=== PATIENT | female | born 1930 | race Caucasian/White ===

== ENCOUNTER 2016-10-06 14:04 | Emergency (ER) | payer OTHER ==
[~2016-10-06] VITALS: Ht 160 cm; Wt 63.5 kg
[~2016-10-06 14:04] MED LIST: ALIS300T PO; ATOR20TA PO; BENA40TA7 PO; CLON0.2T PO; OMEP20TA44 PO; PREMARIN PO
[2016-10-06 16:41] LABS: Basophils # (auto) 0 uL; Basophils % (auto) 0.3 % (0.0-2.0); Eosinophils # (auto) 0 uL; Eosinophils % (auto) 0.2 % (0.0-7.0); Hematocrit 48.1 % (36.0-46.0); Hemoglobin 16.5 g/dL (12.2-16.2); Lymphocytes # (auto) 1.1 uL; Lymphocytes % (auto) 15.1 % (10.0-50.0); Mean Corpuscular Hemoglobin 33.9 pg (28.0-32.0); Mean Corpuscular Hgb Conc. 34.3 g/dL (32.0-36.0); Mean Corpuscular Volume 98.8 fL (80.0-100.0); Mean Platelet Volume 9.3 fL (7.4-10.4); Monocytes # (auto) 0.6 uL; Monocytes % (auto) 7.8 % (0.0-12.0); Neutrophils # (auto) 5.6 uL; Neutrophils % (auto) 76.6 % (37.0-80.0); Platelet Count (auto) 296 10^3/uL (140-450); Red Cell Distribution Width 12.9 % (11.6-16.0); White Blood Cell 7.4 10^3/uL (4.4-10.8)
[2016-10-06 17:13] LABS: Urine Bilirubin Negative (Negative); Urine Blood Negative /uL (Negative); Urine Color Yellow (Yellow); Urine Glucose Normal (Normal); Urine Ketone Negative (Negative); Urine Nitrite Negative (Negative); Urine RBC <1 /hpf (0 - 4); Urine Squamous Epithelial Cell FEW /hpf (<5); Urine Urobilinogen Normal (Negative)
[2016-10-06 18:55] LABS: INR 0.97 (0.9-1.15); Partial Thromboplastin Time 25.3 sec (22.64-33.71); Prothrombin Time 10.6 sec (9.37-12.3)
[2016-10-06 19:13] LABS: Albumin 4.3 g/dL (3.4-5.0); BUN/Creatinine Ratio 18.2; Bilirubin, Total 0.7 mg/dL (0.2-1.0); Calcium 9.7 mg/dL (8.5-10.1); Potassium 5.1 mmol/L (3.5-5.1); Total Protein 7.9 g/dL (6.4-8.2)
[2016-10-06 19:33] LABS: B-Type Natriuretic Peptide 98.31 pg/mL (0-100)
[2016-10-06 19:40] LABS: Temperature: 23.1 C (20.0-25.0)
[2016-10-06 22:50] VITALS: BP 167/90
== END 2016-10-06 23:09 | disposition home or self-care (01) ==
LOC: ER 14:04
DX: R60.0 Localized edema (principal); R00.2 Palpitations; E11.9 Type 2 diabetes mellitus without complications; I10 Essential (primary) hypertension; K21.9 Gastro-esophageal reflux disease without esophagitis; Z88.1 Allergy status to other antibiotic agents; Z88.8 Allergy status to other drugs, medicaments and biological substances; E78.5 Hyperlipidemia, unspecified; Z95.0 Presence of cardiac pacemaker; R07.9 Chest pain, unspecified
CPT/HCPCS: 36415; 71020; 80053; 81001; 82962; 83880; 84484; 85025; 85610; 85730; 93005

== ENCOUNTER 2016-11-22 14:22 | Inpatient (IN) | payer OTHER ==
[~2016-11-22] VITALS: Ht 160 cm; Wt 65.8 kg
[2016-11-22 15:49] LABS: Urine Bilirubin Negative (Negative); Urine Blood Negative /uL (Negative); Urine Color Yellow (Yellow); Urine Glucose Normal (Normal); Urine Nitrite Negative (Negative); Urine RBC <1 /hpf (0 - 4); Urine Squamous Epithelial Cell FEW /hpf (<5); Urine Urobilinogen Normal (Negative)
[2016-11-22 15:55] LABS: Urine Ketone 2+ (Negative)
[2016-11-22 15:57] LABS: Basophils # (auto) 0 uL; CONDITION Y; Eosinophils # (auto) 0 uL; Eosinophils % (auto) 0.2 % (0.0-7.0); Hemoglobin 15.1 g/dL (12.2-16.2); Lymphocytes # (auto) 0.8 uL; Lymphocytes % (auto) 11.8 % (10.0-50.0); Mean Corpuscular Hemoglobin 34.1 pg (28.0-32.0); Mean Corpuscular Hgb Conc. 35.1 g/dL (32.0-36.0); Mean Corpuscular Volume 97.2 fL (80.0-100.0); Mean Platelet Volume 9.5 fL (7.4-10.4); Monocytes # (auto) 0.3 uL; Monocytes % (auto) 4.7 % (0.0-12.0); Neutrophils # (auto) 5.5 uL; Neutrophils % (auto) 83.3 % (37.0-80.0); Platelet Count (auto) 242 10^3/uL (140-450); Red Cell Distribution Width 12.7 % (11.6-16.0); White Blood Cell 6.6 10^3/uL (4.4-10.8)
[2016-11-22 16:13] LABS: BUN/Creatinine Ratio 12.2; Calcium 8.5 mg/dL (8.5-10.1); Magnesium 2.3 mg/dL (1.6-2.6); Potassium 4.1 mmol/L (3.5-5.1)
[2016-11-22 16:14] LABS: INR 0.98 (0.9-1.15); Partial Thromboplastin Time 25.4 sec (22.64-33.71); Prothrombin Time 10.7 sec (9.37-12.3)
[2016-11-22 16:15] LABS: Bilirubin, Total 1.1 mg/dL (0.2-1.0); Total Protein 7.5 g/dL (6.4-8.2)
[2016-11-22] MEDS ORDERED: ONDANSETRON HCL 4 MG/2 ML VIAL IV ONE (20:15)
[2016-11-22] MEDS ORDERED: LEVEMIR SC (21:21)
[2016-11-22] MEDS ORDERED: ATEN-60 PO (21:21)
[2016-11-22] MEDS ORDERED: FURO20TA3 PO (21:23)
[2016-11-22] MEDS ORDERED: POTA10TA51 PO (21:23)
[2016-11-22] MEDS ORDERED: REPA2TAB8 PO (21:26)
[2016-11-22] MEDS ORDERED: DOCUSATE SOD 100 MG CAP PO PRN (21:45)
[2016-11-22] MEDS ORDERED: DEXTROSE (50%) 50ML SYRG IV PRN (21:45)
[2016-11-22] MEDS ORDERED: TEMAZEPAM 15 MG CAP PO PRN (21:45)
[2016-11-22] MEDS ORDERED: ONDANSETRON HCL 4 MG/2 ML VIAL IV PRN (21:45)
[2016-11-22] MEDS ORDERED: HYDROcodone-ACET 5/325MG TAB PO PRN (21:45)
[2016-11-22] MEDS ORDERED: ACETAMINOPHEN 325 MG TAB PO PRN (21:45)
[2016-11-22] MEDS ORDERED: ATORVASTATIN 20 MG TAB PO SCH (22:00)
[2016-11-22] MEDS: FAMOTIDINE 20 MG TAB PO SCH (22:12)
[2016-11-22] MEDS: NITROFURANTOIN (MONO) 100 mg CAP PO SCH (22:12)
[2016-11-22 22:20] VITALS: BP 172/86
[2016-11-22] MEDS: SODIUM CHLORIDE 0.9% 1,000 ML IV SCH (23:32)
[2016-11-22] MEDS: cloNIDine HCL 0.1 MG TAB PO SCH (23:41)
[2016-11-22 23:47] VITALS: BP 172/86
[2016-11-22] MEDS: InsuLIN REG 1unit/0.01ml Soln (100units/ml) SC SCH (23:48)
[2016-11-23] MEDS: ACCU-CHEK COMFORT CURVE STRIP VI SCH ×3 (01:29→11:22)
[2016-11-23] MEDS ORDERED: LOSA100T26 PO (03:46)
[2016-11-23] MEDS ORDERED: NITR-52 PO (03:46)
[2016-11-23 05:34] VITALS: BP 117/66
[2016-11-23] MEDS: InsuLIN REG 1unit/0.01ml Soln (100units/ml) SC SCH ×2 (06:36→11:40)
[2016-11-23 06:37] LABS: Basophils # (auto) 0 uL; Basophils % (auto) 0.4 % (0.0-2.0); CONDITION Y; Eosinophils # (auto) 0 uL; Eosinophils % (auto) 0.6 % (0.0-7.0); Hematocrit 36.2 % (36.0-46.0); Hemoglobin 12.9 g/dL (12.2-16.2); Lymphocytes # (auto) 0.9 uL; Lymphocytes % (auto) 23.8 % (10.0-50.0); Mean Corpuscular Hemoglobin 34.3 pg (28.0-32.0); Mean Corpuscular Hgb Conc. 35.6 g/dL (32.0-36.0); Mean Corpuscular Volume 96.4 fL (80.0-100.0); Mean Platelet Volume 9.5 fL (7.4-10.4); Monocytes # (auto) 0.5 uL; Neutrophils # (auto) 2.4 uL; Neutrophils % (auto) 62.2 % (37.0-80.0); Platelet Count (auto) 230 10^3/uL (140-450); Red Cell Distribution Width 13.1 % (11.6-16.0); White Blood Cell 3.9 10^3/uL (4.4-10.8)
[2016-11-23 06:58] LABS: Albumin 3.2 g/dL (3.4-5.0); BUN/Creatinine Ratio 12.3; Bilirubin, Total 0.7 mg/dL (0.2-1.0); Calcium 8.1 mg/dL (8.5-10.1); Potassium 3.2 mmol/L (3.5-5.1); Total Protein 5.9 g/dL (6.4-8.2)
[2016-11-23] MEDS: NITROFURANTOIN (MONO) 100 mg CAP PO SCH (08:29)
[2016-11-23] MEDS: FAMOTIDINE 20 MG TAB PO SCH (08:30)
[2016-11-23] MEDS: cloNIDine HCL 0.1 MG TAB PO SCH (08:31)
[2016-11-23 08:46] VITALS: BP 132/66
[2016-11-23] MEDS ORDERED: BENAZEPRIL HCL 10 MG TAB PO SCH (10:00)
[2016-11-23] MEDS ORDERED: MONTELUKAST SODIUM 10 MG TAB PO SCH (10:00)
[2016-11-23] MEDS ORDERED: ENOXAPARIN SOD 40 MG/0.4 ML SYRINGE SC SCH (10:00)
[2016-11-23] MEDS: SODIUM CHLORIDE 0.9% 1,000 ML IV SCH (10:41)
[2016-11-23] MEDS ORDERED: POTASSIUM CHL 20 Meq TABLET PO ONE (12:45)
[2016-11-23 13:00] VITALS: BP 108/69
[2016-11-23 16:53] VITALS: BP 151/65
== END 2016-11-23 17:15 | disposition home health service (06) | DRG 696 ==
LOC: EDBD 14:22 → ER 14:25 → OVERFLOW 14:26 → WEST WING 22:20
PROVIDERS: ADMIT Internal Medicine; ATTEND Internal Medicine
DX: R33.9 Retention of urine, unspecified (principal); E87.1 Hypo-osmolality and hyponatremia; E11.9 Type 2 diabetes mellitus without complications; I10 Essential (primary) hypertension; E78.5 Hyperlipidemia, unspecified; I25.10 Atherosclerotic heart disease of native coronary artery without angina pectoris; I70.0 Atherosclerosis of aorta; K21.9 Gastro-esophageal reflux disease without esophagitis; K44.9 Diaphragmatic hernia without obstruction or gangrene; K57.90 Diverticulosis of intestine, part unspecified, without perforation or abscess without bleeding; N13.9 Obstructive and reflux uropathy, unspecified; Z80.0 Family history of malignant neoplasm of digestive organs; Z82.0 Family history of epilepsy and other diseases of the nervous system; Z82.49 Family history of ischemic heart disease and other diseases of the circulatory system; Z95.0 Presence of cardiac pacemaker; Z90.710 Acquired absence of both cervix and uterus; Z88.1 Allergy status to other antibiotic agents; Z88.2 Allergy status to sulfonamides
CPT/HCPCS: 36415; 71010; 74176; 80053; 81001; 82962; 83735; 85025; 85610; 85730; 87086; 93005; 94761; 96374; J1815; J2405

== ENCOUNTER 2016-11-25 14:42 | Emergency (ER) | payer OTHER ==
[~2016-11-25] VITALS: Ht 167.6 cm; Wt 63.5 kg
[~2016-11-25 14:42] MED LIST changes: -ALIS300T PO; +ATEN-60 PO; -BENA40TA7 PO; -CLON0.2T PO; +FURO20TA3 PO; +LEVEMIR SC; +LOSA100T26 PO; +POTA10TA51 PO; -PREMARIN PO; +REPA2TAB8 PO
[2016-11-25 16:44] VITALS: BP 167/82
[2016-11-25 17:44] LABS: Basophils # (auto) 0 uL; Basophils % (auto) 0.3 % (0.0-2.0); CONDITION Y; Eosinophils # (auto) 0 uL; Eosinophils % (auto) 0.4 % (0.0-7.0); Hematocrit 43.6 % (36.0-46.0); Hemoglobin 15.4 g/dL (12.2-16.2); Lymphocytes # (auto) 1.3 uL; Lymphocytes % (auto) 19.6 % (10.0-50.0); Mean Corpuscular Hemoglobin 34.5 pg (28.0-32.0); Mean Corpuscular Hgb Conc. 35.3 g/dL (32.0-36.0); Mean Corpuscular Volume 97.8 fL (80.0-100.0); Mean Platelet Volume 9.6 fL (7.4-10.4); Monocytes # (auto) 0.7 uL; Monocytes % (auto) 10.1 % (0.0-12.0); Neutrophils # (auto) 4.6 uL; Neutrophils % (auto) 69.6 % (37.0-80.0); Platelet Count (auto) 261 10^3/uL (140-450); Red Cell Distribution Width 13.3 % (11.6-16.0); SUSPECT SEE PRINTOUT; White Blood Cell 6.6 10^3/uL (4.4-10.8)
[2016-11-25 17:53] LABS: Albumin 4.4 g/dL (3.4-5.0); Alkaline Phosphatase 90 U/L (45-117); Anion Gap 9 (5-15); Aspartate Aminotransferase 22 U/L (15-37); BUN/Creatinine Ratio 17.1; Bilirubin, Total 0.8 mg/dL (0.2-1.0); Blood Urea Nitrogen 12 mg/dL (7-18); Calcium 9.5 mg/dL (8.5-10.1); Carbon Dioxide 28 mmol/L (21-32); Chloride 92 mmol/L (98-107); GFR African American 103 mL/min; GFR Non-African American 85 mL/min; Glucose 91 mg/dL (74-106); Magnesium 2.6 mg/dL (1.6-2.6); Potassium 4.2 mmol/L (3.5-5.1); Sodium 129 mmol/L (136-145); Total Protein 8.1 g/dL (6.4-8.2)
[2016-11-25 18:10] LABS: Platelet Estimate Adequate
[2016-11-25 18:11] LABS: Giant Platelets Few
== END 2016-11-25 19:48 | disposition left against medical advice (07) ==
LOC: EDUNIT# 14:42 → ER 14:42
DX: I10 Essential (primary) hypertension (principal); G47.00 Insomnia, unspecified; Z53.21 Procedure and treatment not carried out due to patient leaving prior to being seen by health care provider
CPT/HCPCS: 36415; 71020; 80053; 83735; 84484; 85025; 93005

== ENCOUNTER 2017-12-24 16:19 | Inpatient (IN) | payer OTHER ==
[~2017-12-24] VITALS: Ht 160 cm; Wt 64.5 kg
[~2017-12-24 16:19] MED LIST changes: +ASPI81CH43 PO; +CLON0.1T14 PO; +ENAL2.5T PO; -FURO20TA3 PO; -LOSA100T26 PO; -POTA10TA51 PO
[2017-12-24] MEDS ORDERED: SODIUM CHLORIDE 0.9% 1,000 ML IV ONE (16:34)
[2017-12-24 17:41] LABS: Basophils # (auto) 0 uL; Basophils % (auto) 0.3 % (0.0-2.0); Eosinophils # (auto) 0.1 uL; Lymphocytes # (auto) 0.9 uL; Mean Corpuscular Hgb Conc. 35.1 g/dL (32.0-36.0); Monocytes # (auto) 1.1 uL; Nucleated Red Blood Cells % 0.1 %
[2017-12-24 17:43] LABS: Eosinophils % (auto) 0.6 % (0.0-7.0); Hematocrit 33.9 % (36.0-46.0); Hemoglobin 11.9 g/dL (12.2-16.2); Lymphocytes % (auto) 10.3 % (10.0-50.0); Mean Corpuscular Hemoglobin 34.7 pg (28.0-32.0); Mean Corpuscular Volume 98.8 fL (80.0-100.0); Monocytes % (auto) 12.3 % (0.0-12.0); Neutrophils # (auto) 6.9 uL; Neutrophils % (auto) 76.5 % (37.0-80.0); Platelet Count (auto) 207 10^3/uL (140-450); Red Blood Cells 3.44 10^6/uL (4.0-5.20); Red Cell Distribution Width 13.4 % (11.8-14.3)
[2017-12-24] MEDS: SODIUM CHLORIDE 0.9% 1,000 ML IV SCH (17:56)
[2017-12-24] MEDS ORDERED: DEXTROSE (50%) 50ML SYRG IV PRN (18:00)
[2017-12-24] MEDS ORDERED: ACETAMINOPHEN 500 MG TAB PO PRN (18:00)
[2017-12-24] MEDS ORDERED: LORazepam 0.5 MG TAB PO PRN (18:00)
[2017-12-24] MEDS ORDERED: ACETAMINOPHEN 500 MG TAB PO ONE (18:00)
[2017-12-24] MEDS ORDERED: PROMETHAZINE HCL 25 MG/ML 1ML IV PRN (18:00)
[2017-12-24] MEDS ORDERED: LACTULOSE 20Gm/30ML SOLN PO PRN (18:00)
[2017-12-24] MEDS ORDERED: LABETALOL HCL 5 MG/ML ML 20ML VIAL IV PRN (18:00)
[2017-12-24] MEDS ORDERED: NITROGLYCERIN 0.4 MG SL TAB SL PRN (18:00)
[2017-12-24] MEDS ORDERED: MORPHINE SULF INJ 2 MG/ML SYRINGE 1ML IV PRN (18:00)
[2017-12-24 18:05] LABS: Albumin 3.4 g/dL (3.4-5.0); BUN/Creatinine Ratio 18.8; Bilirubin, Total 0.6 mg/dL (0.2-1.0); Potassium 3.8 mmol/L (3.5-5.1); Total Protein 6.4 g/dL (6.4-8.2)
[2017-12-24] MEDS ORDERED: PANTOPRAZOLE 40 MG TAB PO SCH (18:19)
[2017-12-24] MEDS ORDERED: ENALAPRIL MALEATE 2.5 MG TAB PO ONE (18:30)
[2017-12-24] MEDS ORDERED: OMEPRAZOLE PO SCH (19:18)
[2017-12-24 19:23] LABS: Folate (Folic Acid) 17.52 ng/mL (5.38-24)
[2017-12-24 19:45] VITALS: BP 158/67
[2017-12-24 22:00] VITALS: BP 158/67
[2017-12-24] MEDS ORDERED: ATORVASTATIN 20 MG TAB PO SCH (22:00)
[2017-12-24] MEDS: ACCU-CHEK COMFORT CURVE STRIP VI SCH (22:08)
[2017-12-24] MEDS: TEMAZEPAM 15 MG CAP PO PRN (22:18)
[2017-12-24] MEDS: ATORVASTATIN 20 MG TAB PO SCH (22:18)
[2017-12-24] MEDS: InsuLIN REG 1unit/0.01ml Soln (100units/ml) SC SCH (22:18)
[2017-12-24] MEDS: ATENOLOL 25 MG TAB PO SCH (22:18)
[2017-12-24] MEDS: HYDROcodone-ACET 5/325MG TAB PO PRN (22:20)
[2017-12-24] MEDS ORDERED: CRAN600T PO (23:52)
[2017-12-25] MEDS: SODIUM CHLORIDE 0.9% 1,000 ML IV SCH ×2 (03:53→18:56)
[2017-12-25 05:00] VITALS: BP 135/60
[2017-12-25] MEDS ORDERED: PNEUMOCOCCAL VACC POLYS 25 MCG/0.5 ML VIAL IM ONE (05:45)
[2017-12-25] MEDS: HYDROcodone-ACET 5/325MG TAB PO PRN ×3 (05:51→20:38)
[2017-12-25] MEDS: ACCU-CHEK COMFORT CURVE STRIP VI SCH ×4 (07:26→22:00)
[2017-12-25] MEDS: REPAGLINIDE 0.5 MG TAB PO SCH ×3 (07:31→18:10)
[2017-12-25] MEDS: InsuLIN REG 1unit/0.01ml Soln (100units/ml) SC SCH ×5 (07:31→23:15)
[2017-12-25 07:49] VITALS: BP 156/70
[2017-12-25] MEDS: ASPirin 81 mg TAB PO SCH (09:30)
[2017-12-25] MEDS: ATENOLOL 25 MG TAB PO SCH (09:31)
[2017-12-25] MEDS: ENALAPRIL MALEATE 2.5 MG TAB PO SCH (09:31)
[2017-12-25] MEDS: ENOXAPARIN SOD 40 MG/0.4 ML SYRINGE SC SCH (09:32)
[2017-12-25] MEDS ORDERED: ASPirin 81 mg TAB PO ONE (10:00)
[2017-12-25] MEDS ORDERED: IOHEXOL 350 MG/ML 100ML IJ ONE (12:44)
[2017-12-25 13:01] VITALS: BP 165/70
[2017-12-25 16:28] VITALS: BP 163/79
[2017-12-25] MEDS: MORPHINE SULF INJ 2 MG/ML SYRINGE 1ML IV PRN (16:38)
[2017-12-25] MEDS ORDERED: SODIUM CHLORIDE 0.9% 1,000 ML IV ONE ×2 (18:45→22:45)
[2017-12-25 20:12] VITALS: BP 140/73
[2017-12-25 22:00] VITALS: BP 175/74
[2017-12-25] MEDS ORDERED: ENALAPRILAT 1.25 MG/ML-1ML VIAL IV PRN (22:45)
[2017-12-25] MEDS: ATORVASTATIN 20 MG TAB PO SCH (23:14)
[2017-12-26] MEDS: TEMAZEPAM 15 MG CAP PO PRN (00:37)
[2017-12-26] MEDS: HYDROcodone-ACET 5/325MG TAB PO PRN ×2 (03:10→05:13)
[2017-12-26 05:00] VITALS: BP 140/68
[2017-12-26] MEDS: ACCU-CHEK COMFORT CURVE STRIP VI SCH ×2 (06:29→12:20)
[2017-12-26] MEDS: REPAGLINIDE 0.5 MG TAB PO SCH (06:31)
[2017-12-26] MEDS: InsuLIN REG 1unit/0.01ml Soln (100units/ml) SC SCH ×2 (06:40→12:20)
[2017-12-26] MEDS: SODIUM CHLORIDE 0.9% 1,000 ML IV SCH (06:42)
[2017-12-26] MEDS: MORPHINE SULF INJ 2 MG/ML SYRINGE 1ML IV PRN (08:33)
[2017-12-26 09:00] VITALS: BP 158/83
[2017-12-26] MEDS: ENALAPRIL MALEATE 2.5 MG TAB PO SCH (09:38)
[2017-12-26] MEDS: ASPirin 81 mg TAB PO SCH (09:38)
[2017-12-26 09:46] VITALS: BP 127/73
[2017-12-26] MEDS: ENOXAPARIN SOD 40 MG/0.4 ML SYRINGE SC SCH (10:00)
[2017-12-26 12:00] VITALS: BP 157/79
[2017-12-26 12:38] VITALS: BP 157/79
[2017-12-26] MEDS ORDERED: HYDR-4683 PO (13:23)
== END 2017-12-26 15:50 | disposition left against medical advice (07) | DRG 281 ==
LOC: EDBD 16:19 → ER 16:26 → TELE 16:27 → TELE-WESTW 19:38
PROVIDERS: ADMIT Internal Medicine; ATTEND Internal Medicine
DX: I95.1 Orthostatic hypotension (principal); I21.4 Non-ST elevation (NSTEMI) myocardial infarction; E87.1 Hypo-osmolality and hyponatremia; E11.9 Type 2 diabetes mellitus without complications; E78.5 Hyperlipidemia, unspecified; G20 Parkinson's disease; I10 Essential (primary) hypertension; I67.2 Cerebral atherosclerosis; Z66 Do not resuscitate; Z53.21 Procedure and treatment not carried out due to patient leaving prior to being seen by health care provider; W18.39XA Other fall on same level, initial encounter; K21.9 Gastro-esophageal reflux disease without esophagitis; I25.2 Old myocardial infarction; Z80.0 Family history of malignant neoplasm of digestive organs; Z82.0 Family history of epilepsy and other diseases of the nervous system; Z82.49 Family history of ischemic heart disease and other diseases of the circulatory system; Z90.710 Acquired absence of both cervix and uterus; Z88.6 Allergy status to analgesic agent; Z88.1 Allergy status to other antibiotic agents; Z88.2 Allergy status to sulfonamides; Z88.8 Allergy status to other drugs, medicaments and biological substances; Z79.4 Long term (current) use of insulin; Z79.899 Other long term (current) drug therapy; Z91.040 Latex allergy status; Y93.89 Activity, other specified; Y92.098 Other place in other non-institutional residence as the place of occurrence of the external cause; Y99.8 Other external cause status
CPT/HCPCS: 36415; 70450; 70496; 70498; 73502; 80053; 82550; 82607; 82746; 82962; 83036; 83880; 84443; 84484; 85025; 85652; 87081; 93005; 95819; 97163; J1815

== ENCOUNTER 2020-01-07 10:52 | Inpatient (IN) | payer OTHER ==
[~2020-01-07] VITALS: Ht 152.4 cm; Wt 55.4 kg
[~2020-01-07 10:52] MED LIST changes: -CLON0.1T14 PO; +CRAN600T PO; -ENAL2.5T PO; +ENAL2.5T7 PO; +HYDR-4833 PO
[2020-01-07 11:53] LABS: Basophils # (auto) 0 10 ^3/uL (0-0.2); Hematocrit 43.5 % (36.0-46.0); Hemoglobin 15.3 g/dL (12.2-16.2); Mean Corpuscular Hgb Conc. 35.2 g/dL (32.0-36.0); Monocytes # (auto) 0.4 10 ^3/uL (0-1.3); Monocytes % (auto) 5.3 % (0.0-12.0)
[2020-01-07 11:55] LABS: Basophils % (auto) 0.4 % (0.0-2.0); Eosinophils # (auto) 0 10 ^3/uL (0-0.8); Eosinophils % (auto) 0.6 % (0.0-7.0); Lymphocytes # (auto) 0.9 10 ^3/uL (0.4-5.4); Lymphocytes % (auto) 12.4 % (10.0-50.0); Mean Corpuscular Hemoglobin 34.4 pg (28.0-32.0); Mean Corpuscular Volume 97.7 fL (80.0-100.0); Neutrophils # (auto) 6.1 10 ^3/uL (1.6-8.6); Neutrophils % (auto) 81.3 % (37.0-80.0); Nucleated Red Blood Cells % 0.1 %; Platelet Count (auto) 253 10^3/uL (140-450); Red Blood Cells 4.45 10^6/uL (4.0-5.20); Red Cell Distribution Width 13.1 % (11.8-14.3); White Blood Cell 7.5 10^3/uL (4.4-10.8)
[2020-01-07] MEDS ORDERED: SODIUM CHLORIDE 0.9% 500 ML IVB ONE (12:02)
[2020-01-07 12:12] LABS: Acetaminophen < 2.0 ug/mL (10-30); Albumin 3.9 g/dL (3.4-5.0); Anion Gap 7 (5-15); Blood Alcohol < 3.0 mg/dL (0-5); Blood Urea Nitrogen 13 mg/dL (7-18); Carbon Dioxide 26 mmol/L (21-32); Chloride 104 mmol/L (98-107); Glucose 197 mg/dL (74-106); Potassium 3.9 mmol/L (3.5-5.1); Salicylate < 1.7 mg/dL (2.8-20.0); Sodium 137 mmol/L (136-145)
[2020-01-07 12:16] LABS: Alanine Aminotransferase 22 U/L (13-56); Alkaline Phosphatase 89 U/L (45-117); Aspartate Aminotransferase 18 U/L (15-37); BUN/Creatinine Ratio 19.7; Bilirubin, Total 0.6 mg/dL (0.2-1.0); GFR African American 109 mL/min; GFR Non-African American 90 mL/min; Total Protein 7.1 g/dL (6.4-8.2)
[2020-01-07 12:21] LABS: Albumin 3.8 g/dL (3.4-5.0)
[2020-01-07 12:26] LABS: Bilirubin, Direct 0.2 mg/dL (0-0.2); Bilirubin, Total 0.6 mg/dL (0.2-1.0)
[2020-01-07] MEDS ORDERED: ENAL10TA12 PO (13:55)
[2020-01-07] MEDS ORDERED: CAR125T PO (13:55)
[2020-01-07] MEDS ORDERED: LEVEMIR SC (13:55)
[2020-01-07] MEDS ORDERED: AMLO10TA13 PO (13:55)
[2020-01-07] MEDS ORDERED: ASPI325T4 PO (13:58)
[2020-01-07 14:34] LABS: Alcohol, Urine < 3.0 mg/dL (0-10); Amphetamine Screen, Urine NEGATIVE (NEGATIVE); Barbiturate Scree,Urine NEGATIVE (NEGATIVE); Benzodiazephine Screen, Urine NEGATIVE (NEGATIVE); Cannabinoid Screen, Urine NEGATIVE (NEGATIVE); Cocaine Screen, Urine NEGATIVE (NEGATIVE); Opiate Scree,Urine NEGATIVE (NEGATIVE); Phencyclidine Screen, Urine NEGATIVE (NEGATIVE)
[2020-01-07 14:43] LABS: Urine Amorphous Crystal FEW /hpf (None Seen); Urine Bacteria FEW /hpf (None Seen); Urine Blood Negative /uL (Negative); Urine Specific Gravity 1.008 (1.001-1.035); Urine WBC 15 /hpf (0 - 5)
[2020-01-07] MEDS ORDERED: ACCU-CHEK COMFORT CURVE STRIP VI ONE (16:00)
[2020-01-07] MEDS ORDERED: D5W/SOD CHLO 0.9% 1,000 ML IV ONE (16:00)
[2020-01-07] MEDS ORDERED: MORPHINE SULF INJ 2 MG/ML SYRINGE 1ML IV PRN (17:45)
[2020-01-07] MEDS ORDERED: NITROGLYCERIN 0.4 MG SL TAB SL PRN (17:45)
[2020-01-07] MEDS ORDERED: hydrALAZINE HCL 20 MG/ML VL IV PRN ×2 (18:00→18:15)
[2020-01-07] MEDS ORDERED: DEXTROSE (50%) 50ML SYRG IV PRN (22:45)
[2020-01-07] MEDS: ENALAPRILAT 1.25 MG/ML-1ML VIAL IV PRN (23:11)
[2020-01-08] MEDS ORDERED: PANTOPRAZOLE 40 MG TAB PO ONE (03:30)
[2020-01-08] MEDS: ACCU-CHEK COMFORT CURVE STRIP VI SCH ×4 (06:43→22:01)
[2020-01-08] MEDS: InsuLIN REG 1unit/0.01ml Soln (100units/ml) SC SCH ×4 (06:44→22:00)
[2020-01-08 09:10] VITALS: BP 135/60
[2020-01-08 13:00] VITALS: BP 137/64
[2020-01-08 17:00] VITALS: BP 162/63
--- NOTE | 2020-01-08 17:23 | NUR ---
TELE PSYC RECALLED AWAITING MD TO CALL BACK
[2020-01-08] MEDS: ENALAPRILAT 1.25 MG/ML-1ML VIAL IV PRN (18:03)
--- NOTE | 2020-01-08 18:09 | NUR ---
WOUND CONSULT PLACED AND PHOTO TAKEN OF BACK.
--- NOTE | 2020-01-08 19:24 | NUR ---
endorsed care to night RN; awaiting tele psyc call back.
--- NOTE | 2020-01-08 19:30 | NUR ---
Opening Shift Note Assumed care of patient. Patient laying in bed awake and alert. No S/S of distress/SOB or pain. Safety measures maintained by keeping the bed locked in lowest position, 2 side rails up, personal items and call light within reach. Sitter at bedside. Instructed on POC and to call for assist PRN, will continue to monitor for changes Q1hr and PRN.
[2020-01-08 22:00] VITALS: BP 164/65
[2020-01-08] MEDS ORDERED: ACETAMINOPHEN 325 MG TAB PO PRN (22:00)
[2020-01-08] MEDS ORDERED: MIRTAZAPINE 30 MG TAB PO SCH (22:00)
[2020-01-08] MEDS: cloNIDine HCL 0.1 MG TAB PO SCH (22:01)
[2020-01-08] MEDS: MIRTAZAPINE 30 MG TAB PO SCH (22:01)
--- NOTE | 2020-01-08 22:30 | NUR ---
paged. Patient complaining of pain on her abdominal region. ordered Tylenol 625MG Q6H PRN.
[2020-01-09 05:00] VITALS: BP 162/77
[2020-01-09] MEDS: ENALAPRILAT 1.25 MG/ML-1ML VIAL IV PRN (05:51)
[2020-01-09] MEDS: ACCU-CHEK COMFORT CURVE STRIP VI SCH ×4 (06:35→22:00)
[2020-01-09] MEDS: InsuLIN REG 1unit/0.01ml Soln (100units/ml) SC SCH ×4 (06:37→22:00)
--- NOTE | 2020-01-09 08:45 | NUR ---
S.S. UPDATED TELEPSYC RECOMMEND 5150 ONCE MEDICALLY CLEARED.
[2020-01-09] MEDS: cloNIDine HCL 0.1 MG TAB PO SCH ×2 (08:55→22:01)
[2020-01-09] MEDS: PANTOPRAZOLE 40 MG TAB PO SCH (08:58)
[2020-01-09 09:00] VITALS: BP 161/78
--- NOTE | 2020-01-09 09:30 | NUR ---
new order for POM patient takes prilosec daily.
--- NOTE | 2020-01-09 09:30 | NUR ---
JEMAL CM-UPDATED TELEPSYC RECOMMEND 5150 ONCE MEDICALLY CLEARED.
--- NOTE | 2020-01-09 10:00 | NUR ---
WOUND CARE NOTE: IN TO SEE PATIENT AT THIS TIME PER WOUND CARE CONSULT REQUEST. PATIENT ADMITTED TO [facility] WITH DIAGNOSIS OF OVERDOSE. PATIENT IS 51/50 STATUS ONCE MEDICALLY CLEARED. PATIENT HAS CURRENT JANINE SCORE OF 19. SITTER IS AT BEDSIDE. SHE IS ABLE TO AMBULATE WITH WALKER. PATIENT VERY THIN, WEIGHING ONLY 56 KG. SHE HAS KYPHOSIS, WITH VERY PROMINENT SPINOUS PROCESS. IT APPEARS THAT PATIENT HAS AN INTACT 6 X 2 CM DTI TO THE SPINE. WOUND PHOTO WAS TAKEN AT TIME OF ADMIT, BY BEDSIDE NURSE FOR REFERENCE. ORDERED SPECIALTY AIR MATTRESS AT THIS TIME. PATIENT TO BE PLACED, PENDING DELIVERY BY [facility] [facility]. RECOMMEND: FREQUENT TURN SCHEDULE 2 HOURS, PRN CONDITION PERMITS, WITH PRESSURE REDISTRIBUTION, USING PILLOWS/WEDGES, BID/PRN APPLICATION WITH MOISTURE BARRIER CREAM, OPTIFOAM GENTLE SACRAL DRESSING, PRN APPLICATION OF OPTIFOAM GENTLE DRESSING OVER DTI TO SPINE, SPECIALTY AIR MATTRESS, SKIN/WOUND CARE PLAN, DIETARY CONSULT FOR PRESSURE INJURY, CONTINUED MONITORING BY WOUND CARE TEAM. Addendum: 01/09/20 at 1624 by Leonor Morales RN Amended: Links added.
--- NOTE | 2020-01-09 10:07 | NUR ---
PAGED PROVIDER TO UPDATE PATIENT TELEPSYC RECOMMENDS 5150 HOLD ONCE PATIENT IS MEDICALLY CLEARED.
[2020-01-09 13:00] VITALS: BP 145/75
--- NOTE | 2020-01-09 13:56 | NUR ---
assessment re: ss consult Per ss consult overdose/suicidal, limited support, lives alone. Patient is a 89 year old female who is alert and oriented. Prior to admission patient lived home alone and was independent. Patient informed me she has a fww for home use. Patient informed me she was feeling depressed and took some pills. Patient stated she is lonely and does not want to be a burden on her daughter. I offered patient some stress management and ways to cope with her depression and loneliness. I informed patient of the benefits of socializing with others her own age. Patient informed me she goes to the [employer] to exercise, I informed her that is a great way to release stress, I informed her of eating healthy, exercise, journaling, volunteering, find a hobby, go to yarsani and read scriptures and go to therapy. Patient is agreeable to getting help. Patient wants to feel better and wants to live. Patient does need psych placement and appointments with her PCP and a therapist. Addendum: 01/09/20 at 1406 by Tami MICHAEL Amended: Links added.
--- NOTE | 2020-01-09 16:29 | NUR ---
5150 EVAL PATIENT IS ALERT AND ORIENTED X4, PATIENT STATES SHE DOES NOT WANT TO HURT HERSELF, SHE ACCIDENTLY TOOK TO MANY OF HER PILLS. PATIENT STATES SHE HAS A CAREGIVER THAT COMES IN TWO TIMES A WEEK AND A DAUGHTER WHO HELPS RUN ERRANDS BUT SHE DOES NOT HAVE SOMEONE WHO COMES EVERY DAY TO ASSIST WITH MEDICATIONS SO SHE GETS CONFUSED. PATIENT STATES SHE SOMETIMES GETS DEPRESSED BUT NO MORE THAN ANY OTHER PERSON. PATIENT STATES SHE DOES NOT HAVE A PLAN TO HURT HERSELF. NO 5150 WRITTEN AT THIS TIME.
--- NOTE | 2020-01-09 16:38 | NUR ---
I spoke with Lisette-Social Media Marketing Analyst with [facility]-I let her know that patient was deemed to not require 5150 inpatient treatment per assessment of designated nurse. I asked Lisette if they authorize home health aides and she said no-what they could offer is a home health safety eval-I relayed this information to nurse Gaudencio-she will be speaking with Dr. Miguel.
[2020-01-09 17:00] VITALS: BP 129/79
--- NOTE | 2020-01-09 19:30 | NUR ---
endorsed care to night rn; patient will have an air matress delivered tomorrow.
[2020-01-09 21:45] VITALS: BP 176/76
[2020-01-09] MEDS: ENALAPRIL MALEATE 10 MG TAB PO SCH (22:01)
[2020-01-09] MEDS: MIRTAZAPINE 30 MG TAB PO SCH (22:01)
[2020-01-10 05:00] VITALS: BP 159/88
[2020-01-10] MEDS: ACCU-CHEK COMFORT CURVE STRIP VI SCH ×2 (06:33→11:31)
[2020-01-10] MEDS: InsuLIN REG 1unit/0.01ml Soln (100units/ml) SC SCH ×2 (06:34→12:16)
--- NOTE | 2020-01-10 07:45 | NUR ---
Opening Shift Note Assumed care of patient, sitting up in bed awake and alert. No S/S of distress/SOB or pain. Sitter at bedside bed locked and in lowest position call light in reach. Instructed on POC and to call for assist PRN, will continue to monitor for changes Q1hr and PRN.
[2020-01-10] MEDS: cloNIDine HCL 0.1 MG TAB PO SCH (09:39)
[2020-01-10] MEDS: ENALAPRIL MALEATE 10 MG TAB PO SCH (09:40)
[2020-01-10] MEDS: PANTOPRAZOLE 40 MG TAB PO SCH (09:41)
[2020-01-10] MEDS ORDERED: CARVEDILOL 12.5 MG TAB PO SCH (10:00)
[2020-01-10] MEDS ORDERED: ASPirin 81 mg TAB PO SCH (10:00)
--- NOTE | 2020-01-10 10:36 | NUR ---
Dr Miguel at bedside. New orders received.
[2020-01-10] MEDS ORDERED: MIR30T PO (11:02)
--- NOTE | 2020-01-10 11:22 | NUR ---
D/C Planning Per SS consult for home health safety evaluation, physical therapy, walker and wheelchair. Per SW II Tami patient has a walker for home use. Faxed clinical information to [facility], [place] requesting wheelchair to be deliver to [facility] and [facility] requesting authorization for order. Per Marisol with [facility] patient has been accepted and service to start within 24-48hrs upon d/c. Placed follow up called to patient daughter Desi who informed me patient will be staying with her upon discharge. Informed bedside nurse. Placed follow up called to CHAI Dennis with [facility] advising her patient has orders for a wheelchair and home health.
--- NOTE | 2020-01-10 11:38 | NUR ---
DAUGHTER CALLED FOR STATUS ON THE PATIENT. INFORMED ME THAT THE PATIENT ALREADY HAS A WHEELCHAIR AT HOME. LET JORY KNOW.
[2020-01-10 12:45] VITALS: BP 159/79
--- NOTE | 2020-01-10 14:04 | NUR ---
D/C Planning Received a call from KARLA Montemayor advising me patient daughter called and informed her patient has a wheelchair for home use.
--- NOTE | 2020-01-10 14:41 | NUR ---
Discharge instructions given as ordered. Encourage to follow up with PMD as instructed. All questions and concerns addressed. Patient verbalized understanding. Medication reconciliation form completed and copy given to patient. Home medications held in Pharmacy returned to patient, and needed vaccines given. IV removed with catheter intact, pressure dressing applied, Miramontes catheter removed. Telemetry unit returned to ICU. Patient picked up by daughter Laly taken to private vehicle via wheelchair with all personal belongings, accompanied by staff and family member. No distress noted at time of departure.
== END 2020-01-10 13:52 | disposition home health service (06) | DRG 918 ==
LOC: EDBD 10:52 → ER 10:52 → MERGE 10:53 → TELE 10:53 → TELE-CENTR 01-08 08:59
PROVIDERS: ADMIT Hospitalist; ATTEND Hospitalist
DX: T46.5X1A Poisoning by other antihypertensive drugs, accidental (unintentional), initial encounter (principal); F33.2 Major depressive disorder, recurrent severe without psychotic features; E11.9 Type 2 diabetes mellitus without complications; Z82.49 Family history of ischemic heart disease and other diseases of the circulatory system; I11.9 Hypertensive heart disease without heart failure; Z88.2 Allergy status to sulfonamides; Z88.8 Allergy status to other drugs, medicaments and biological substances; Z91.040 Latex allergy status
CPT/HCPCS: 36415; 71045; 80053; 80076; 80307; 80320; 80329; 81001; 82962; 83735; 85025; 87086; 93005; 97110; 97116; 97163; 97530; G0378; J1815

== ENCOUNTER 2021-06-09 17:08 | Emergency (ER) | payer OTHER ==
[~2021-06-09] VITALS: Ht 162.6 cm; Wt 54.4 kg
[~2021-06-09 17:08] MED LIST changes: +AMLO-496 PO; +ASPI325T4 PO; +CAR125T PO; +ENAL10TA12 PO; +MIR30T PO
[2021-06-09 18:14] LABS: Basophils # (auto) 0.1 10 ^3/uL (0-0.2); Basophils % (auto) 1.2 % (0.0-2.0); Eosinophils # (auto) 0.2 10 ^3/uL (0-0.8); Eosinophils % (auto) 3.9 % (0.0-7.0); Hematocrit 41.4 % (36.0-46.0); Hemoglobin 14.9 g/dL (12.2-16.2); Mean Corpuscular Volume 94.6 fL (80.0-100.0); Monocytes # (auto) 0.6 10 ^3/uL (0-1.3); Monocytes % (auto) 10.2 % (0.0-12.0); Neutrophils # (auto) 3.8 10 ^3/uL (1.6-8.6); Neutrophils % (auto) 66.7 % (37.0-80.0); Nucleated Red Blood Cells % 0.1 %; Red Blood Cells 4.38 10^6/uL (4.0-5.20); Red Cell Distribution Width 13.2 % (11.8-14.3); White Blood Cell 5.6 10^3/uL (4.4-10.8)
[2021-06-09 18:33] LABS: Albumin 3.3 g/dL (3.4-5.0); Calcium 8.7 mg/dL (8.5-10.1); Potassium 4.7 mmol/L (3.5-5.1)
[2021-06-09 18:39] LABS: BUN/Creatinine Ratio 14.5; Bilirubin, Total 0.5 mg/dL (0.2-1.0)
[2021-06-09] MEDS ORDERED: GLYCERIN ADULT RECTAL SUPP PR ONE (19:30)
[2021-06-10 00:44] LABS: Urine Bacteria MANY /hpf (None Seen); Urine Blood Negative /uL (Negative); Urine Budding Yeast OCCASIONAL /hpf (None Seen); Urine Mucus FEW (None Seen); Urine Specific Gravity 1.009 (1.001-1.035); Urine WBC 6 /hpf (0 - 5)
[2021-06-10] MEDS ORDERED: cefTRIAXone 1GM/50ML D5W 50 ML IV ONE (02:15)
[2021-06-10] MEDS ORDERED: SODIUM CHLORIDE 0.9% 1,000 ML IV ONE (02:15)
[2021-06-10 03:30] VITALS: BP 140/70
[2021-06-10] MEDS ORDERED: CEFD300C2 PO (03:32)
[2021-06-10] MEDS ORDERED: HYDR2.5C39 TOP (03:32)
[2021-06-10] MEDS ORDERED: POLY33504 PO (03:32)
== END 2021-06-10 04:38 | disposition home or self-care (01) ==
LOC: EDBD 17:08 → ER 17:08
DX: K59.00 Constipation, unspecified (principal); N39.0 Urinary tract infection, site not specified; I11.0 Hypertensive heart disease with heart failure; I50.9 Heart failure, unspecified; E11.9 Type 2 diabetes mellitus without complications; K21.9 Gastro-esophageal reflux disease without esophagitis; E78.5 Hyperlipidemia, unspecified; Z90.710 Acquired absence of both cervix and uterus; Z88.1 Allergy status to other antibiotic agents; Z88.2 Allergy status to sulfonamides; Z20.822 Contact with and (suspected) exposure to COVID-19; Z88.8 Allergy status to other drugs, medicaments and biological substances
CPT/HCPCS: 36415; 71045; 74176; 80053; 81001; 83605; 83690; 84484; 85025; 87086; 87426; 93005; 96365; 99285; J0696; J7030